=== PATIENT | male | born 1960 | race African-American/Black ===

== ENCOUNTER 2020-11-21 06:09 | Inpatient (IN) | payer MEDICAID ==
[~2020-11-21] VITALS: Ht 170.2 cm; Wt 72.6 kg
[2020-11-21] MEDS ORDERED: ONDANSETRON HCL 4MG/2ML INJ IV STA ×3 (06:44→23:05)
[2020-11-21] MEDS ORDERED: MORPHINE SULFATE 4 MG/ML CPJ (NOT FOR IM USE) IV STA ×3 (06:44→23:05)
[2020-11-21] MEDS ORDERED: SODIUM CHLORIDE 0.9% 1,000 ML IV ONE (06:45)
[2020-11-21] MEDS ORDERED: VANCOMYCIN 1 G PREMIX 200 ML IV SCH ×2 (06:45→20:15)
[2020-11-21] MEDS ORDERED: CEFTRIAXONE 1 G PREMIX 50 ML IV ONE (06:45)
[2020-11-21] MEDS ORDERED: TETANUS, DIPHTHERIA, PERTUSSIS VAC/PF 0.5ML (>7YR OLD) IM ONE (06:45)
[2020-11-21 07:52] LABS: BASOPHILS % 0.4 % (0.0-2.0); EOSINOPHILS % 0.5 % (0.0-5.0); HEMATOCRIT. 37.4 % (42.0-52.0); HEMOGLOBIN. 12.5 g/dL (14.0-18.0); LYMPHOCYTES % 10.5 % (20.0-50.0); MEAN CORPUSCULAR HEMOGLOBIN 32.9 pg (28.0-32.0); MEAN CORPUSCULAR VOLUME 98.3 fL (80.0-94.0); MONOCYTES % 8.5 % (2.0-8.0); NEUTROPHILS % 80.1 % (40.0-76.0); RED CELL DISTRIBUTION WIDTH 13.6 % (11.6-14.6)
[2020-11-21 07:59] LABS: CHLORIDE 108 mEq/L (98-107)
[2020-11-21 10:44] LABS: CLARITY URINE CLEAR (CLEAR); COLOR URINE YELLOW (YELLOW); KETONES URINE NEGATIVE (NEGATIVE); LEUKOCYTE ESTERASE URINE NEGATIVE (NEGATIVE); NITRITE URINE NEGATIVE (NEGATIVE); OCCULT BLOOD URINE NEGATIVE (NEGATIVE); PH URINE 6.5 (4.5-8.0); PROTEIN URINE NEGATIVE (NEGATIVE); SPECIFIC GRAVITY URINE 1.005 (1.005-1.030); UROBILINOGEN URINE 0.2 E.U./dL (0.2-1.0)
[2020-11-21] MEDS ORDERED: PIPERACILLIN/TAZ 3.375G PREMIX 50 ML IV ONE (20:15)
[2020-11-22] MEDS ORDERED: OXYCODONE HCL/ACETAMINOPHEN 5/325MG TABLET PO ONE (13:15)
[2020-11-22] MEDS ORDERED: HYDROCODONE/ACETAMINOPHEN 5/325MG TABLET PO ONE (18:45)
[2020-11-22] MEDS: PIPERACILLIN/TAZ 3.375G PREMIX 50 ML IV SCH (20:08)
[2020-11-22] MEDS: VANCOMYCIN 1 G PREMIX 200 ML IV SCH (20:18)
[2020-11-22] MEDS ORDERED: PIPERACILLIN/TAZOBACTAM 3.375GM/50ML PREMIX IV SCH (22:00)
[2020-11-23] MEDS: PIPERACILLIN/TAZ 3.375G PREMIX 50 ML IV SCH ×3 (05:20→19:30)
[2020-11-23] MEDS: VANCOMYCIN 1 G PREMIX 200 ML IV SCH ×2 (09:49→18:13)
[2020-11-23] MEDS ORDERED: HYDROCODONE/ACETAMINOPHEN 5/325MG TABLET PO ONE (20:15)
[2020-11-24] MEDS: PIPERACILLIN/TAZ 3.375G PREMIX 50 ML IV SCH ×2 (03:52→12:06)
[2020-11-24] MEDS ORDERED: VANCOMYCIN 1 G PREMIX 200 ML IV SCH (10:00)
[2020-11-24] MEDS ORDERED: OXYCODONE HCL/ACETAMINOPHEN 5/325MG TABLET PO ONE (10:15)
[2020-11-24] MEDS ORDERED: PIPERACILLIN/TAZ 3.375G PREMIX 50 ML IV SCH (12:00)
[2020-11-24 16:00] VITALS: BP 97/50
[2020-11-24 16:20] VITALS: BP 97/50
[2020-11-24] MEDS ORDERED: IPRATROPIUM/ALBUTEROL 0.5-3(2.5)MG/3ML NEB HHN PRN (17:15)
[2020-11-24] MEDS ORDERED: MAGNESIUM/ALUMINUM HYDROXIDE/SIMETHICONE 30ML UDC PO PRN (17:15)
[2020-11-24] MEDS ORDERED: DIPHENHYDRAMINE 50MG/ML VIAL IV PRN (17:15)
[2020-11-24] MEDS ORDERED: LORAZEPAM 2MG/ML CPJ IV PRN (17:15)
[2020-11-24] MEDS ORDERED: GUAIFENESIN 200MG/10ML SUGAR FREE UDC PO PRN (17:15)
[2020-11-24] MEDS ORDERED: HYDRALAZINE 20MG/ML VIAL IV PRN ×2 (17:15→17:30)
[2020-11-24] MEDS ORDERED: CLONIDINE 0.1MG TABLET PO PRN (17:15)
[2020-11-24] MEDS ORDERED: DOCUSATE SODIUM 100MG CAPSULE PO PRN (17:15)
[2020-11-24] MEDS ORDERED: ACETAMINOPHEN 325MG TABLET PO PRN (17:15)
[2020-11-24] MEDS ORDERED: ONDANSETRON HCL 4MG/2ML INJ IV PRN (17:15)
[2020-11-24] MEDS: ENOXAPARIN 40MG/0.4ML SYR SUBCUT SCH (17:30)
[2020-11-24] MEDS ORDERED: HYDRALAZINE 10 MG in SODIUM CHLORIDE 0.9% 49.5 ML IV PRN (17:45)
[2020-11-24 20:00] VITALS: BP 94/48
[2020-11-24] MEDS ORDERED: VANCOMYCIN 1 G PREMIX 200 ML IV NR (21:00)
[2020-11-24] MEDS: SODIUM CHLORIDE 0.9% INJ 3ML FLUSH IVF SCH (21:14)
[2020-11-24] MEDS: PIPERACILLIN/TAZOBACTAM 3.375 G in DEXTROSE 5% WATER 50 ML IV SCH (22:51)
[2020-11-25] VITALS: BP 113/53
[2020-11-25] MEDS: HYDROCODONE/ACETAMINOPHEN 5/325MG TABLET PO PRN ×4 (02:55→18:38)
[2020-11-25 04:00] VITALS: BP 105/54
[2020-11-25] MEDS: SODIUM CHLORIDE 0.9% INJ 3ML FLUSH IVF SCH ×3 (05:39→21:24)
[2020-11-25] MEDS ORDERED: VANCOMYCIN 750 MG PREMIX 150 ML IV SCH (06:00)
[2020-11-25] MEDS: PIPERACILLIN/TAZOBACTAM 3.375 G in DEXTROSE 5% WATER 50 ML IV SCH ×3 (06:53→21:23)
[2020-11-25 07:02] LABS: BASOPHILS % 0.4 % (0.0-2.0); EOSINOPHILS % 1.6 % (0.0-5.0); HEMATOCRIT. 39.8 % (42.0-52.0); HEMOGLOBIN. 13.3 g/dL (14.0-18.0); LYMPHOCYTES % 11.8 % (20.0-50.0); MEAN CORPUSCULAR HEMOGLOBIN 32.8 pg (28.0-32.0); MEAN CORPUSCULAR VOLUME 97.6 fL (80.0-94.0); MEAN PLATELET VOLUME 8.3 fl (7.4-10.4); MONOCYTES % 7.5 % (2.0-8.0); NEUTROPHILS % 78.7 % (40.0-76.0); PLATELET 380 x1000/uL (130-400); RED BLOOD CELL COUNT 4.07 mill/uL (4.7-6.1); RED CELL DISTRIBUTION WIDTH 13.4 % (11.6-14.6)
[2020-11-25 08:00] VITALS: BP 90/49
[2020-11-25 09:49] LABS: CHLORIDE 103 mEq/L (98-107)
[2020-11-25 12:00] VITALS: BP 105/53
[2020-11-25] MEDS: MORPHINE SULFATE 2 MG/ML CPJ (NOT FOR IM USE) IV PRN ×2 (12:36→15:45)
[2020-11-25] MEDS ORDERED: NALOXONE HCL 0.4MG/ML VIAL IV PRN (14:15)
[2020-11-25] MEDS: VANCOMYCIN 750 MG PREMIX 150 ML IV SCH ×2 (15:36→23:38)
[2020-11-25 16:00] VITALS: BP 116/72
[2020-11-25] MEDS: ENOXAPARIN 40MG/0.4ML SYR SUBCUT SCH (18:32)
[2020-11-25 20:25] VITALS: BP 101/57
[2020-11-26] MEDS: HYDROCODONE/ACETAMINOPHEN 5/325MG TABLET PO PRN ×2 (00:11→09:44)
[2020-11-26 00:25] VITALS: BP 101/64
[2020-11-26 04:27] VITALS: BP 94/51
[2020-11-26] MEDS: MORPHINE SULFATE 2 MG/ML CPJ (NOT FOR IM USE) IV PRN ×3 (05:57→21:34)
[2020-11-26] MEDS: SODIUM CHLORIDE 0.9% INJ 3ML FLUSH IVF SCH ×3 (06:31→21:31)
[2020-11-26] MEDS: PIPERACILLIN/TAZOBACTAM 3.375 G in DEXTROSE 5% WATER 50 ML IV SCH ×2 (06:31→13:23)
[2020-11-26 08:00] VITALS: BP 105/63
[2020-11-26] MEDS: VANCOMYCIN 750 MG PREMIX 150 ML IV SCH ×2 (09:41→17:54)
[2020-11-26 12:00] VITALS: BP 107/64
[2020-11-26 16:00] VITALS: BP 101/52
[2020-11-26] MEDS: ENOXAPARIN 40MG/0.4ML SYR SUBCUT SCH (17:55)
[2020-11-26 20:00] VITALS: BP 107/59
[2020-11-27] VITALS: BP 104/55
[2020-11-27] MEDS: VANCOMYCIN 750 MG PREMIX 150 ML IV SCH ×3 (00:53→16:08)
[2020-11-27 04:00] VITALS: BP 111/63
[2020-11-27] MEDS: HYDROCODONE/ACETAMINOPHEN 5/325MG TABLET PO PRN ×3 (04:25→18:30)
[2020-11-27] MEDS: SODIUM CHLORIDE 0.9% INJ 3ML FLUSH IVF SCH ×3 (05:25→22:29)
[2020-11-27 08:00] VITALS: BP 101/56
[2020-11-27 08:23] LABS: CHLORIDE 106 mEq/L (98-107)
[2020-11-27 12:00] VITALS: BP 105/61
[2020-11-27 16:00] VITALS: BP 104/59
[2020-11-27] MEDS: MORPHINE SULFATE 2 MG/ML CPJ (NOT FOR IM USE) IV PRN ×2 (16:09→22:30)
[2020-11-27] MEDS: ENOXAPARIN 40MG/0.4ML SYR SUBCUT SCH (17:30)
[2020-11-27 20:00] VITALS: BP 105/56
[2020-11-28] VITALS: BP 98/57
[2020-11-28] MEDS: VANCOMYCIN 750 MG PREMIX 150 ML IV SCH ×2 (00:39→10:04)
[2020-11-28 04:00] VITALS: BP 100/56
[2020-11-28] MEDS: SODIUM CHLORIDE 0.9% INJ 3ML FLUSH IVF SCH (05:16)
[2020-11-28 08:00] VITALS: BP 112/60
[2020-11-28] MEDS: MORPHINE SULFATE 2 MG/ML CPJ (NOT FOR IM USE) IV PRN (10:05)
[2020-11-28 12:00] VITALS: BP 123/65
[2020-11-28 12:31] VITALS: BP 132/66
[2020-11-28] MEDS: HYDROCODONE/ACETAMINOPHEN 5/325MG TABLET PO PRN (12:31)
== END 2020-11-28 14:20 | disposition left against medical advice (07) | DRG 344 ==
LOC: ER 06:09 → 6EST 11-23 12:15 → ENRESERV 11-24 14:55
PROVIDERS: ADMIT Internal Medicine; ATTEND Internal Medicine
PROC: 0HCFXZZ Extirpation of Matter from Right Hand Skin, External Approach (ICD-10-PCS; principal; 2020-11-21)
DX: M86.8X4 Other osteomyelitis, hand (principal); R65.10 Systemic inflammatory response syndrome (SIRS) of non-infectious origin without acute organ dysfunction; S60.452A Superficial foreign body of right middle finger, initial encounter; L02.511 Cutaneous abscess of right hand; M65.841 Other synovitis and tenosynovitis, right hand; Z20.822 Contact with and (suspected) exposure to COVID-19; Z53.29 Procedure and treatment not carried out because of patient's decision for other reasons; L03.011 Cellulitis of right finger; W22.8XXA Striking against or struck by other objects, initial encounter; Y93.01 Activity, walking, marching and hiking; B95.62 Methicillin resistant Staphylococcus aureus infection as the cause of diseases classified elsewhere; Y92.89 Other specified places as the place of occurrence of the external cause; Y99.8 Other external cause status
CPT/HCPCS: 36415; 72070; 72100; 73130; 80048; 80053; 80202; 81003; 85025; 85651; 86140; 87070; 87077; 87186; 90715; 99285; A4565; J0696; J1200; J1650; J2270; J2405; J2543; J3370; J7030; J7040; J7060